=== PATIENT | male | born 1960 | race Caucasian/White ===

== ENCOUNTER 2018-07-11 12:33 | Inpatient (IN) | payer OTHER ==
[2018-07-11 13:10] VITALS: BMI 23.3
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
[2018-07-11] MEDS ORDERED: guaiFENesin/D-METHORPHAN HB 10 ML UNIT-DOSE CUPS PO PRN (15:50)
[2018-07-11] MEDS ORDERED: LOPERAMIDE HCL 2 MG CAPSULE PO PRN (15:50)
[2018-07-11] MEDS ORDERED: P-EPHED 60MG/TRIPROLIDI 2.5MG TABLET PO PRN (15:50)
[2018-07-11] MEDS ORDERED: ACETAMINOPHEN 325 MG TABLET (FP) PO PRN (15:50)
[2018-07-11] MEDS ORDERED: MAG HYDROX/AL HYDROX/SIMETH 30 ML UNIT-DOSE CUP PO PRN (15:50)
[2018-07-11] MEDS ORDERED: MAGNESIUM HYDROX 2400MG/30ML ORAL SUSPENSION 30 ML CUP PO PRN (15:50)
[2018-07-11] MEDS ORDERED: MAGNESIUM CITRATE 300 ML BOTTLE PO PRN (15:50)
[2018-07-11] MEDS ORDERED: MENTHOL/PHENOL 1 EACH UD MM PRN (15:50)
[2018-07-11] MEDS ORDERED: ALBUTEROL SO4 8 GM HFA INHALER IH PRN (15:52)
[2018-07-11] MEDS ORDERED: METHADONE HCL 10 MG TABLET (FOR DETOX USE ONLY) PO ONE ×2 (17:00→23:00)
[2018-07-11] MEDS: chlordiazePOXIDE HCL 25 MG CAPSULE PO PRN (20:15)
[2018-07-11] MEDS ORDERED: MELATONIN 5 MG TABLETS PO PRN (22:00)
[2018-07-11] MEDS: chlordiazePOXIDE HCL 25 MG CAPSULE PO SCH (22:25)
[2018-07-11] MEDS: THIAMINE HCL 100 MG TABLET (FP) PO SCH (22:25)
[2018-07-12] MEDS: hydrOXYzine PAMOATE 50 MG CAPSULE (FP) PO PRN ×2 (03:49→14:52)
[2018-07-12] MEDS: chlordiazePOXIDE HCL 25 MG CAPSULE PO PRN (03:50)
[2018-07-12] MEDS: chlordiazePOXIDE HCL 25 MG CAPSULE PO SCH ×4 (05:34→22:13)
[2018-07-12] MEDS ORDERED: METHADONE HCL 10 MG TABLET (FOR DETOX USE ONLY) PO SCH (10:00)
[2018-07-12] MEDS: PRENATAL VITAMINS W/ FOLIC ACID TABLET (FP) PO SCH (10:23)
[2018-07-12] MEDS: NICOTINE 21 MG/24 HOURS TOPICAL PATCH TD SCH (10:26)
[2018-07-12] MEDS: NICOTINE POLACRILEX 2 MG GUM BC PRN (10:27)
[2018-07-12 11:00] LABS: ALK PHOS 246 U/L (45-117); ANION GAP 7 MMOL/L (8-16); BILIRUBIN,TOTAL 0.8 mg/dL (0.2-1); BLOOD UREA NITROGEN 11 mg/dL (7-18); CHLORIDE 100 mmol/L (98-107); CO2 30 mmol/L (21-32); CREATININE 0.6 mg/dL (0.55-1.3); GLUCOSE,RANDOM 94 mg/dL (74-106); POTASSIUM 3.8 mmol/L (3.5-5.1); SGOT/AST 83 U/L (15-37); SGPT/ALT 95 U/L (13-61); SODIUM 138 mmol/L (136-145); TOT PROT 7.4 g/dl (6.4-8.2)
[2018-07-12 11:11] LABS: HEMATOCRIT 41.6 % (35.4-49); HEMOGLOBIN 14.4 GM/dL (11.7-16.9); MCH 33.2 pg (25.7-33.7); MCHC 34.7 g/dl (32.0-35.9); MEAN CELL VOLUME 95.6 fl (80-96); MEAN PLT VOLUME 9.7 fl (7.5-11.1); PLATELET COUNT 181 K/MM3 (134-434); RBC 4.35 M/mm3 (4.00-5.60); RDW 13.9 % (11.9-15.9); WHITE BLOOD COUNT 4.9 K/mm3 (4.0-10.0)
[2018-07-12] MEDS ORDERED: FLU VACCINE QUAD 60 MCG/0.5 ML (MDV 18-19) IM ONE (12:00)
--- NOTE | 2018-07-12 14:10 | PN ---
S CIWA - CIWA Score Nausea/Vomitin-Mild Nausea/No Vomiting Muscle Tremors: 3 Anxiety: 3 Agitation: 2 Paroxysmal Sweats: 1-Minimal Palms Moist Orientation: 1-Uncertain about Date Tacttile Disturbances: 0-None Auditory Disturbances: 0-None Visual Disturbances: 0-None Headache: 2-Mild CIWA-Ar Total Score: 13 BHS COWS - Scale Resting Pulse: 1= [place] 81-100 Sweatin= Chills/Flushing Restless Observation: 0= Sits Still Pupil Size: 0= Normal to Room Light Bone or Joint Aches: 1= Mild Discomfort Runny Nose/ Eye Tearin= Nasal Congestion GI Upset > 30mins: 2= Nausea/Diarrhea Tremor Observation of Outstretched Hands: 2= Slight Tremor Visible Yawning Observation: 2= >3x During Session Anxiety or Irritability: 1=Feels Anxious/Irritable Goose Flesh Skin: 0=Smooth Skin COWS Score: 11 S Progress Note (SOAP) Subjective: body aches muscle cramping joints pain tremor sweat trouble sleep at night Objective: 07/12/18 14:12 Vital Signs Temperature 97.7 F 07/12/18 09:10 Pulse Rate 79 07/12/18 12:00 Respiratory Rate 20 07/12/18 12:00 Blood Pressure 167/79 07/12/18 09:10 O2 Sat by Pulse Oximetry (%) Laboratory Last Values WBC 4.9 K/mm3 (4.0-10.0) 07/12/18 07:00 RBC 4.35 M/mm3 (4.00-5.60) 07/12/18 07:00 Hgb 14.4 GM/dL (11.7-16.9) 07/12/18 07:00 Hct 41.6 % (35.4-49) 07/12/18 07:00 MCV 95.6 fl (80-96) 07/12/18 07:00 MCH 33.2 pg (25.7-33.7) D 07/12/18 07:00 MCHC 34.7 g/dl (32.0-35.9) 07/12/18 07:00 RDW 13.9 % (11.9-15.9) 07/12/18 07:00 Plt Count 181 K/MM3 (134-434) 07/12/18 07:00 MPV 9.7 fl (7.5-11.1) 07/12/18 07:00 Sodium 138 mmol/L (136-145) 07/12/18 07:00 Potassium 3.8 mmol/L (3.5-5.1) 07/12/18 07:00 Chloride 100 mmol/L (98-107) 07/12/18 07:00 Carbon Dioxide 30 mmol/L (21-32) 07/12/18 07:00 Anion Gap 7 MMOL/L (8-16) L 07/12/18 07:00 BUN 11 mg/dL (7-18) 07/12/18 07:00 Creatinine 0.6 mg/dL (0.55-1.3) 07/12/18 07:00 Creat Clearance w eGFR > 60 (>60) 07/12/18 07:00 Random Glucose 94 mg/dL (74-106) 07/12/18 07:00 Calcium 9.0 mg/dL (8.5-10.1) 07/12/18 07:00 Total Bilirubin 0.8 mg/dL (0.2-1) 07/12/18 07:00 AST 83 U/L (15-37) H 07/12/18 07:00 ALT 95 U/L (13-61) H 07/12/18 07:00 Alkaline Phosphatase 246 U/L (45-117) H 07/12/18 07:00 Total Protein 7.4 g/dl (6.4-8.2) 07/12/18 07:00 Albumin 4.0 g/dl (3.4-5.0) 07/12/18 07:00 RPR Titer Nonreactive (NONREACTIVE) 07/12/18 07:00 HIV 1&2 Antibody Screen Negative 07/12/18 07:00 HIV P24 Antigen Negative 07/12/18 07:00 hypertension begin HCTZ begin amlodipine lab noted 07/12/18 14:15 Assessment: 07/12/18 14:16 withdrawal sx hypertension Plan: continue detox HCTZ Amlodipine
[2018-07-12] MEDS: HYDROCHLOROTHIAZIDE 25 MG TABLET (FP) PO SCH (14:53)
[2018-07-12 15:31] LABS: URINE APPEARANCE CLEAR; URINE BILIRUBIN NEGATIVE (<2.0 mg/dL); URINE COLOR LTYELLOW; URINE GLUCOSE (UA) 1+ (NEGATIVE); URINE KETONE NEGATIVE (NEGATIVE); URINE LEUK ESTERASE NEGATIVE (NEGATIVE); URINE NITRITE NEGATIVE (NEGATIVE); URINE PROTEIN NEGATIVE (NEGATIVE); URINE UROBILINOGEN NEGATIVE mg/dL (0.2-1.0)
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
[2018-07-12] MEDS: amLODIPine BESYLATE 5 MG TABLET (FP) PO SCH (22:12)
[2018-07-12] MEDS: QUEtiapine FUMARATE 50 MG TABLET PO SCH (22:13)
[2018-07-12] MEDS: THIAMINE HCL 100 MG TABLET (FP) PO SCH (22:13)
[2018-07-13] MEDS: IBUPROFEN 400 MG TABLET (FP) PO PRN ×3 (03:15→22:25)
[2018-07-13] MEDS: chlordiazePOXIDE HCL 25 MG CAPSULE PO SCH ×3 (05:32→17:28)
[2018-07-13] MEDS: NICOTINE 21 MG/24 HOURS TOPICAL PATCH TD SCH (09:07)
[2018-07-13] MEDS: amLODIPine BESYLATE 5 MG TABLET (FP) PO SCH ×2 (09:07→22:21)
[2018-07-13] MEDS: HYDROCHLOROTHIAZIDE 25 MG TABLET (FP) PO SCH (09:07)
[2018-07-13] MEDS: PRENATAL VITAMINS W/ FOLIC ACID TABLET (FP) PO SCH (09:07)
[2018-07-13] MEDS: METHADONE HCL 5 MG TABLET (FOR DETOX USE ONLY) PO SCH (09:07)
--- NOTE | 2018-07-13 10:21 | EKG ---
Test Reason : Blood Pressure : / mmHG Vent. Rate : 087 BPM Atrial Rate : 087 BPM P-R Int : 166 ms QRS Dur : 090 ms QT Int : 386 ms P-R-T Axes : 066 081 066 degrees QTc Int : 464 ms NORMAL SINUS RHYTHM POSSIBLE LEFT ATRIAL ENLARGEMENT BORDERLINE ECG NO PREVIOUS ECGS AVAILABLE Confirmed by OSBALDO NAYAK MD ([id number]) on 07/13/2018 10:20:48 AM Referred By: Confirmed By:OSBALDO NAYAK MD
--- NOTE | 2018-07-13 10:55 | PN ---
S CIWA - CIWA Score Nausea/Vomitin Muscle Tremors: 2 Anxiety: 2 Agitation: 2 Paroxysmal Sweats: 2 Orientation: 0-Oriented Tacttile Disturbances: 0-None Auditory Disturbances: 0-None Visual Disturbances: 0-None Headache: 2-Mild CIWA-Ar Total Score: 12 BHS COWS - Scale Resting Pulse: 0= [place] 80 or Below Sweatin=Flushed/Facial Moisture Restless Observation: 1= Difficult to Sit Still Pupil Size: 1= Pupils >than Normal Bone or Joint Aches: 2= Severe Diffuse Aches Runny Nose/ Eye Tearin= None GI Upset > 30mins: 2= Nausea/Diarrhea Tremor Observation of Outstretched Hands: 2= Slight Tremor Visible Yawning Observation: 0= None Anxiety or Irritability: 2=Irritable/Anxious Goose Flesh Skin: 0=Smooth Skin COWS Score: 12 S Progress Note (SOAP) Subjective: PATIENT C/O NAUSEA, DIARRHEA, SWEATS, CHILLS AND RESTLESSNESS. Objective: Vital Signs Temperature 97 F L 07/13/18 09:02 Pulse Rate 79 07/13/18 09:02 Respiratory Rate 20 07/13/18 09:02 Blood Pressure 160/95 07/13/18 09:02 O2 Sat by Pulse Oximetry (%) Laboratory Tests 07/12/18 07/12/18 07/12/18 07:00 07:00 07:00 WBC 4.9 RBC 4.35 Hgb 14.4 Hct 41.6 MCV 95.6 MCH 33.2 D MCHC 34.7 RDW 13.9 Plt Count 181 MPV 9.7 Sodium 138 Potassium 3.8 Chloride 100 Carbon Dioxide 30 Anion Gap 7 L BUN 11 Creatinine 0.6 Creat Clearance w eGFR > 60 Random Glucose 94 Calcium 9.0 Total Bilirubin 0.8 AST 83 H ALT 95 H Alkaline Phosphatase 246 H Total Protein 7.4 Albumin 4.0 Urine Color Urine Appearance Urine pH Ur Specific [place] Urine Protein Urine Glucose (UA) Urine Ketones Urine Blood Urine Nitrite Urine Bilirubin Urine Urobilinogen Ur Leukocyte Esterase RPR Titer Nonreactive HIV 1&2 Antibody Screen HIV P24 Antigen 07/12/18 07/12/18 07:00 13:00 WBC RBC Hgb Hct MCV MCH MCHC RDW Plt Count MPV Sodium Potassium Chloride Carbon Dioxide Anion Gap BUN Creatinine Creat Clearance w eGFR Random Glucose Calcium Total Bilirubin AST ALT Alkaline Phosphatase Total Protein Albumin Urine Color Ltyellow Urine Appearance Clear Urine pH 8.0 Ur Specific [place] 1.010 Urine Protein Negative Urine Glucose (UA) 1+ H Urine Ketones Negative Urine Blood Negative Urine Nitrite Negative Urine Bilirubin Negative Urine Urobilinogen Negative Ur Leukocyte Esterase Negative RPR Titer HIV 1&2 Antibody Screen Negative HIV P24 Antigen Negative PE: ALERT AND ORIENTED X 3 SKIN WARM AND MOIST CAR S1S2 RESP CTA BL EXT MILD TREMORS, NO EDEMA +ANXIETY, RESTLESSNESS Assessment: 07/13/18 10:55 WITHDRAWAL SX Plan: CONTINUE DETOX ENCOURAGE ORAL FLUIDS CONTINUE TO MONITOR CLINICALLY
[2018-07-13] MEDS: THIAMINE HCL 100 MG TABLET (FP) PO SCH (22:21)
[2018-07-13] MEDS: QUEtiapine FUMARATE 50 MG TABLET PO SCH (22:21)
[2018-07-13] MEDS: chlordiazePOXIDE 5 MG CAPSULE PO SCH (22:22)
[2018-07-14] MEDS: chlordiazePOXIDE 5 MG CAPSULE PO SCH ×3 (05:30→17:43)
[2018-07-14] MEDS: METHADONE HCL 5 MG TABLET (FOR DETOX USE ONLY) PO SCH (10:02)
[2018-07-14] MEDS: PRENATAL VITAMINS W/ FOLIC ACID TABLET (FP) PO SCH (10:02)
[2018-07-14] MEDS: HYDROCHLOROTHIAZIDE 25 MG TABLET (FP) PO SCH (10:02)
[2018-07-14] MEDS: amLODIPine BESYLATE 5 MG TABLET (FP) PO SCH ×2 (10:02→22:19)
[2018-07-14] MEDS: NICOTINE 21 MG/24 HOURS TOPICAL PATCH TD SCH (10:03)
[2018-07-14] MEDS: NICOTINE POLACRILEX 2 MG GUM BC PRN (10:06)
--- NOTE | 2018-07-14 13:04 | PN ---
[facility] Progress Note Note: PATIENT CONTINUES WITH DETOX REGIMEN. C/O DIARRHEA AND SHAKES. Vital Signs Temperature 96.1 F L 07/14/18 09:02 Pulse Rate 120 H 07/14/18 09:02 Respiratory Rate 18 07/14/18 09:02 Blood Pressure 130/88 07/14/18 09:02 O2 Sat by Pulse Oximetry (%) Laboratory Tests 07/12/18 07/12/18 07/12/18 07:00 07:00 07:00 WBC 4.9 RBC 4.35 Hgb 14.4 Hct 41.6 MCV 95.6 MCH 33.2 D MCHC 34.7 RDW 13.9 Plt Count 181 MPV 9.7 Sodium 138 Potassium 3.8 Chloride 100 Carbon Dioxide 30 Anion Gap 7 L BUN 11 Creatinine 0.6 Creat Clearance w eGFR > 60 Random Glucose 94 Calcium 9.0 Total Bilirubin 0.8 AST 83 H ALT 95 H Alkaline Phosphatase 246 H Total Protein 7.4 Albumin 4.0 Urine Color Urine Appearance Urine pH Ur Specific [place] Urine Protein Urine Glucose (UA) Urine Ketones Urine Blood Urine Nitrite Urine Bilirubin Urine Urobilinogen Ur Leukocyte Esterase RPR Titer Nonreactive HIV 1&2 Antibody Screen HIV P24 Antigen 07/12/18 07/12/18 07:00 13:00 WBC RBC Hgb Hct MCV MCH MCHC RDW Plt Count MPV Sodium Potassium Chloride Carbon Dioxide Anion Gap BUN Creatinine Creat Clearance w eGFR Random Glucose Calcium Total Bilirubin AST ALT Alkaline Phosphatase Total Protein Albumin Urine Color Ltyellow Urine Appearance Clear Urine pH 8.0 Ur Specific [place] 1.010 Urine Protein Negative Urine Glucose (UA) 1+ H Urine Ketones Negative Urine Blood Negative Urine Nitrite Negative Urine Bilirubin Negative Urine Urobilinogen Negative Ur Leukocyte Esterase Negative RPR Titer HIV 1&2 Antibody Screen Negative HIV P24 Antigen Negative PE: ALERT AND ORIENTED X 3 SKIN WARM AND DRY EXT FULL ROM, NO TREMORS VISIBLE AMB AD JP A/P WITHDRAWAL SX CONTINUE DETOX ENCOURAGE ORAL FLUIDS MONITOR
[2018-07-14] MEDS: chlordiazePOXIDE HCL 10 MG CAPSULE PO SCH (22:18)
[2018-07-14] MEDS: QUEtiapine FUMARATE 50 MG TABLET PO SCH (22:18)
[2018-07-14] MEDS: THIAMINE HCL 100 MG TABLET (FP) PO SCH (22:18)
[2018-07-14] MEDS: IBUPROFEN 400 MG TABLET (FP) PO PRN (22:20)
[2018-07-15] MEDS: chlordiazePOXIDE HCL 10 MG CAPSULE PO SCH ×2 (05:42→10:38)
[2018-07-15] MEDS ORDERED: METHADONE HCL 10 MG TABLET (FOR DETOX USE ONLY) PO SCH (10:00)
--- NOTE | 2018-07-15 10:08 | PN ---
[facility] Progress Note Note: PATIENT CONTINUES WITH DETOX REGIMEN. STATES HAVING INTERMITTENT EPISODES OF DIARRHEA AND NIGHT SWEATS. OTHERWISE, PATIENT REPORTS " I FEEL OKAY". Vital Signs Temperature 96.7 F L 07/15/18 06:33 Pulse Rate 63 07/15/18 06:33 Respiratory Rate 18 07/15/18 06:33 Blood Pressure 132/76 07/15/18 06:33 O2 Sat by Pulse Oximetry (%) Laboratory Tests 07/12/18 07/12/18 07/12/18 07:00 07:00 07:00 WBC 4.9 RBC 4.35 Hgb 14.4 Hct 41.6 MCV 95.6 MCH 33.2 D MCHC 34.7 RDW 13.9 Plt Count 181 MPV 9.7 Sodium 138 Potassium 3.8 Chloride 100 Carbon Dioxide 30 Anion Gap 7 L BUN 11 Creatinine 0.6 Creat Clearance w eGFR > 60 Random Glucose 94 Calcium 9.0 Total Bilirubin 0.8 AST 83 H ALT 95 H Alkaline Phosphatase 246 H Total Protein 7.4 Albumin 4.0 Urine Color Urine Appearance Urine pH Ur Specific [place] Urine Protein Urine Glucose (UA) Urine Ketones Urine Blood Urine Nitrite Urine Bilirubin Urine Urobilinogen Ur Leukocyte Esterase RPR Titer Nonreactive HIV 1&2 Antibody Screen HIV P24 Antigen 07/12/18 07/12/18 07:00 13:00 WBC RBC Hgb Hct MCV MCH MCHC RDW Plt Count MPV Sodium Potassium Chloride Carbon Dioxide Anion Gap BUN Creatinine Creat Clearance w eGFR Random Glucose Calcium Total Bilirubin AST ALT Alkaline Phosphatase Total Protein Albumin Urine Color Ltyellow Urine Appearance Clear Urine pH 8.0 Ur Specific [place] 1.010 Urine Protein Negative Urine Glucose (UA) 1+ H Urine Ketones Negative Urine Blood Negative Urine Nitrite Negative Urine Bilirubin Negative Urine Urobilinogen Negative Ur Leukocyte Esterase Negative RPR Titer HIV 1&2 Antibody Screen Negative HIV P24 Antigen Negative PE: ALERT AND ORIENTED X 3 SKIN WARM AND DRY CAR S1S2 RESP CTA BL EXT FULL ROM, NO TREMORS A/P WITHDRAWAL SX CONTINUE DETOX FOR D/C IN AM CONTINUE TO MONITOR
[2018-07-15] MEDS: HYDROCHLOROTHIAZIDE 25 MG TABLET (FP) PO SCH (10:38)
[2018-07-15] MEDS: amLODIPine BESYLATE 5 MG TABLET (FP) PO SCH (10:38)
[2018-07-15] MEDS: PRENATAL VITAMINS W/ FOLIC ACID TABLET (FP) PO SCH (10:38)
[2018-07-15] MEDS: NICOTINE 21 MG/24 HOURS TOPICAL PATCH TD SCH (10:41)
[2018-07-15] MEDS: NICOTINE POLACRILEX 2 MG GUM BC PRN (10:42)
[2018-07-15 13:38] VITALS: BP 118/89; PULSE 119; TEMP 97
[2018-07-16] MEDS ORDERED: METHADONE HCL 5 MG TABLET (FOR DETOX USE ONLY) PO SCH (06:00)
== END 2018-07-15 15:58 | disposition other institution (70) | DRG 773 ==
LOC: YASAS 12:33 → Y3N 16:27
PROC: HZ2ZZZZ Detoxification Services for Substance Abuse Treatment (ICD-10-PCS; principal; 2018-07-11)
DX: F11.23 Opioid dependence with withdrawal (principal); F10.230 Alcohol dependence with withdrawal, uncomplicated; F14.20 Cocaine dependence, uncomplicated; F12.20 Cannabis dependence, uncomplicated; F17.213 Nicotine dependence, cigarettes, with withdrawal; F19.24 Other psychoactive substance dependence with psychoactive substance-induced mood disorder; F31.89 Other bipolar disorder; I10 Essential (primary) hypertension; G47.00 Insomnia, unspecified; K21.9 Gastro-esophageal reflux disease without esophagitis; M54.5 Low back pain; G89.29 Other chronic pain; Z86.69 Personal history of other diseases of the nervous system and sense organs; Z91.19 Patient's noncompliance with other medical treatment and regimen; Z91.013 Allergy to seafood; Z91.5 Personal history of self-harm
CPT/HCPCS: 36415; 80053; 81003; 85027; 86593; 87389; 93005; 93010

== ENCOUNTER 2018-07-15 15:12 | Inpatient (IN) | payer OTHER ==
[2018-07-15 16:02] VITALS: BMI 22.1
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
[2018-07-15] MEDS ORDERED: MAGNESIUM CITRATE 300 ML BOTTLE PO PRN (19:24)
[2018-07-15] MEDS ORDERED: MAG HYDROX/AL HYDROX/SIMETH 30 ML UNIT-DOSE CUP PO PRN (19:24)
[2018-07-15] MEDS ORDERED: LOPERAMIDE HCL 2 MG CAPSULE PO PRN (19:24)
[2018-07-15] MEDS ORDERED: MAGNESIUM HYDROX 2400MG/30ML ORAL SUSPENSION 30 ML CUP PO PRN (19:24)
[2018-07-15] MEDS ORDERED: MENTHOL/PHENOL 1 EACH UD MM PRN (19:24)
--- NOTE | 2018-07-15 19:24 | HP ---
[facility] Rehab Assess/Revision - Admission History Admitted to Rehab from: [facility] Date of Admission to Rehab: 07/15/18 - Vital signs Vital Signs: Vital Signs Period Temp Pulse Resp BP Sys/Rust Pulse Ox Last 24 Hr 98 F-98.1 F 95-95 18-18 120-120/85-85 - Findings Detox History & Physical reviewed: Yes Concur with findings: Yes Comments/Additional Findings: Tolerated detox protocol well Inpatient Rehab Admission - Initial Determination Are CD services needed?: Yes Free of communicable disease: Yes Not in need of hospitalization: Yes - Rehab Admission Criteria Previous failed treatment: Yes Poor recovery environment: Yes Comorbidities: No Lacks judgement: Yes Patient is meeting Inpatient Rehab admission criteria:: Yes
[2018-07-15] MEDS ORDERED: ALBUTEROL SO4 0.083% IH SOL 2.5 MG/3 ML VIAL.NEB. NEB PRN (19:27)
[2018-07-15] MEDS: QUEtiapine FUMARATE 50 MG TABLET PO SCH (21:13)
[2018-07-15] MEDS: THIAMINE HCL 100 MG TABLET (FP) PO SCH (21:14)
[2018-07-15] MEDS: MELATONIN 5 MG TABLETS PO PRN (21:14)
[2018-07-15] MEDS: amLODIPine BESYLATE 5 MG TABLET (FP) PO SCH (21:14)
[2018-07-16] MEDS: NICOTINE 14 MG/24 HOURS TOPICAL PATCH TD SCH (09:46)
[2018-07-16] MEDS: amLODIPine BESYLATE 5 MG TABLET (FP) PO SCH ×2 (09:47→21:11)
[2018-07-16] MEDS: HYDROCHLOROTHIAZIDE 25 MG TABLET (FP) PO SCH (09:47)
[2018-07-16] MEDS: PRENATAL VITAMINS W/ FOLIC ACID TABLET (FP) PO SCH (09:47)
[2018-07-16] MEDS: hydrOXYzine PAMOATE 50 MG CAPSULE (FP) PO PRN (14:33)
[2018-07-16] MEDS: THIAMINE HCL 100 MG TABLET (FP) PO SCH (21:11)
[2018-07-16] MEDS: QUEtiapine FUMARATE 50 MG TABLET PO SCH (21:11)
[2018-07-16] MEDS: MELATONIN 5 MG TABLETS PO PRN (21:12)
[2018-07-17] MEDS: ACETAMINOPHEN 325 MG TABLET (FP) PO PRN (06:18)
[2018-07-17] MEDS: hydrOXYzine PAMOATE 50 MG CAPSULE (FP) PO PRN ×2 (06:18→21:11)
[2018-07-17] MEDS: PRENATAL VITAMINS W/ FOLIC ACID TABLET (FP) PO SCH (09:54)
[2018-07-17] MEDS: amLODIPine BESYLATE 5 MG TABLET (FP) PO SCH ×2 (09:54→21:10)
[2018-07-17] MEDS: NICOTINE 14 MG/24 HOURS TOPICAL PATCH TD SCH (09:54)
[2018-07-17] MEDS: HYDROCHLOROTHIAZIDE 25 MG TABLET (FP) PO SCH (09:54)
[2018-07-17] MEDS: IBUPROFEN 400 MG TABLET (FP) PO PRN ×2 (09:57→16:50)
[2018-07-17] MEDS: QUEtiapine FUMARATE 50 MG TABLET PO SCH (21:10)
[2018-07-17] MEDS: THIAMINE HCL 100 MG TABLET (FP) PO SCH (21:10)
[2018-07-18] MEDS: hydrOXYzine PAMOATE 50 MG CAPSULE (FP) PO PRN ×3 (06:00→21:10)
[2018-07-18] MEDS: IBUPROFEN 400 MG TABLET (FP) PO PRN (06:00)
[2018-07-18] MEDS: HYDROCHLOROTHIAZIDE 25 MG TABLET (FP) PO SCH (10:08)
[2018-07-18] MEDS: PRENATAL VITAMINS W/ FOLIC ACID TABLET (FP) PO SCH (10:08)
[2018-07-18] MEDS: amLODIPine BESYLATE 5 MG TABLET (FP) PO SCH ×2 (10:08→21:09)
[2018-07-18] MEDS: NICOTINE 14 MG/24 HOURS TOPICAL PATCH TD SCH (10:08)
[2018-07-18] MEDS: NICOTINE POLACRILEX 2 MG GUM BUC PRN (10:10)
--- NOTE | 2018-07-18 11:11 | PN ---
[facility] Progress Note Note: PT C/O LEFT TESTICULAR PULSATING PAIN DESCRIBED SCALE 9/10(SAYS "SEEING STARS"). REPORTS IT IS WORSE WHEN THE AREA TOUCHES HIS THIGH AND DIFFICULT TO WALK. REPORTS THERE IS A REDNESS AND LUMP TO THE SAID AREA ON LEFT TESTICLE. PT ALSO C/O BURNING SENSATION ON URINATION AT TIP OF HIS PENIS.URINATION. PT COMPLETED DETOX [facility] ON 07/15/18 AND REFERRED TO REHAB SAME DAY. PT DENIES FEVER, NAUSEA, OR VOMITING. DENIES TRUAMA TO AREA. REPORTS PAIN HAS BEEN ON FOR 2-3 DAYS AND TOOK PAIN MEDICINE WITH LITTLE OR NO RELIEF. PT IS REQUESTING EVALUATION AT THE ER. Vital Signs 07/18/18 07/18/18 07/18/18 03:30 06:46 10:00 Temperature 98.1 F Pulse Rate 106 H 105 H Respiratory 18 18 20 Rate Blood Pressure 126/91 108/82 GROIN; MODERATE TO SEVERE PAIN TO LEFT TESTICLE(PT PALPATED SELF AND NOT TOLERATED HIS TOUCH), VERY SLIGHT REDNESS. PT EXHIBITED NO PAIN TO RIGHT SIDE. IMPRESSION;R/O TESTICULAR INFECTION PLAN:TRANSFER TO [facility]IA [facility]BULANCE FOR EVALUATION AND TREATMENT IF NEEDED. SPOKE WITH FAWAD(NURSE PEARL GLUE OPERATOR) AT [facility] WHO OK'D TO BRING THE PATIENT. PT MAY RETURN TO [facility] TO CONTINUE REHAB WHEN CLEARED.
[2018-07-18] MEDS: QUEtiapine FUMARATE 50 MG TABLET PO SCH (21:08)
[2018-07-18] MEDS: THIAMINE HCL 100 MG TABLET (FP) PO SCH (21:09)
[2018-07-19] MEDS: NAPROXEN 500 MG TABLET (FP) PO PRN ×2 (04:40→21:06)
[2018-07-19] MEDS: amLODIPine BESYLATE 5 MG TABLET (FP) PO SCH ×2 (09:52→21:06)
[2018-07-19] MEDS: PRENATAL VITAMINS W/ FOLIC ACID TABLET (FP) PO SCH (09:52)
[2018-07-19] MEDS: hydrOXYzine PAMOATE 50 MG CAPSULE (FP) PO PRN ×2 (09:53→21:07)
[2018-07-19] MEDS: NICOTINE 14 MG/24 HOURS TOPICAL PATCH TD SCH (09:53)
[2018-07-19] MEDS: NICOTINE POLACRILEX 2 MG GUM BUC PRN (09:53)
[2018-07-19] MEDS: HYDROCHLOROTHIAZIDE 25 MG TABLET (FP) PO SCH (09:56)
[2018-07-19 11:01] LABS: ALBUMIN 4.2 g/dl (3.4-5.0); ALK PHOS 165 U/L (45-117); ANION GAP 7 MMOL/L (8-16); BILIRUBIN,TOTAL 0.2 mg/dL (0.2-1); BLOOD UREA NITROGEN 25 mg/dL (7-18); CALCIUM 9.1 mg/dL (8.5-10.1); CHLORIDE 105 mmol/L (98-107); CO2 27 mmol/L (21-32); CREATININE 0.7 mg/dL (0.55-1.3); GLUCOSE,RANDOM 168 mg/dL (74-106); POTASSIUM 4.1 mmol/L (3.5-5.1); SGOT/AST 22 U/L (15-37); SGPT/ALT 30 U/L (13-61); SODIUM 138 mmol/L (136-145); TOT PROT 7.4 g/dl (6.4-8.2)
--- NOTE | 2018-07-19 15:47 | PN ---
[facility] Progress Note Note: PT RETURNED FROM [facility] LAST EVENING AT 7;00 PM PER DOCUMENTATION/ NURSE. PT'S DOCUMENT HAS INSTRUCTION FOR UROLOGY EVALUATION ON 07/20/18 WITH COLBY OLSON AT [address], [address] [place] PH: . PT ALSO HAS REFERRAL TO TAYLA ELIZABETH DO AT [address], [address], [place], [place] [address] PH:[phone] DISCUSSED WITH NURSE CARINE ON [address] WHO WILL FACILITATE PT'S FOLLOW UP FOR REFERRAL ON 07/20/18. [facility] ED DISCHARGE PLAN:*DC/Admit/Observation/Transfer Diagnosis at time of Disposition: Left testicular pain - Discharge Dispostion Disposition: TRANSFER ACUTE CARE/OTHER HOSP Condition at time of disposition: Stable Decision to Admit order: No - Prescriptions Prescriptions: Naproxen [Naprosyn -] 500 mg PO BID PRN #20 tablet PRN Reason: Pain Level 6-10 - Referrals Referrals: Tayla Camacho DO [Staff Physician] - Colby Lo MD [Staff Physician] - - Patient Instructions Additional Instructions: -You were seen here for left testicular pain and found to have a left testicular mass. This is concerning for malignancy/cancer and you will need to follow up with a Urologist. We spoke to Urology and they recommended you to come to their office this Wednesday (07/20/18) for further evaluation. They will be expecting you.The information for the Urology will be in the Package. The name of the Urologist is Dr. Cerda. -You were also found to have a possible infection of the gallbladder area and you will need to be followed up by a stomach Doctor within 1 week. You will have a referral to a stomach doctor in your discharge packet. The name of the Doctor is Dr. Camacho -If you start to experience worsening abdominal pain, fevers, chills, severe vomiting, new, worsening, or concerning symptoms, please return to the emergency department immediately. -Please take Naproxen 500mg twice a day for pain up to 10 days as needed - Post Discharge Activity
[2018-07-19] MEDS: QUEtiapine FUMARATE 50 MG TABLET PO SCH (21:06)
[2018-07-19] MEDS: THIAMINE HCL 100 MG TABLET (FP) PO SCH (21:06)
[2018-07-19] MEDS: MELATONIN 5 MG TABLETS PO PRN (21:09)
[2018-07-20] MEDS: hydrOXYzine PAMOATE 50 MG CAPSULE (FP) PO PRN ×2 (06:34→10:24)
[2018-07-20] MEDS: ACETAMINOPHEN 325 MG TABLET (FP) PO PRN ×2 (06:34→17:55)
[2018-07-20] MEDS: NICOTINE POLACRILEX 2 MG GUM BUC PRN (10:24)
[2018-07-20] MEDS: NAPROXEN 500 MG TABLET (FP) PO PRN ×2 (10:24→21:14)
[2018-07-20] MEDS: HYDROCHLOROTHIAZIDE 25 MG TABLET (FP) PO SCH (10:24)
[2018-07-20] MEDS: PRENATAL VITAMINS W/ FOLIC ACID TABLET (FP) PO SCH (10:24)
[2018-07-20] MEDS: NICOTINE 14 MG/24 HOURS TOPICAL PATCH TD SCH (10:24)
[2018-07-20] MEDS: amLODIPine BESYLATE 5 MG TABLET (FP) PO SCH ×2 (10:24→21:12)
[2018-07-20] MEDS: THIAMINE HCL 100 MG TABLET (FP) PO SCH (21:12)
[2018-07-20] MEDS: QUEtiapine FUMARATE 50 MG TABLET PO SCH (21:12)
[2018-07-20] MEDS: MELATONIN 5 MG TABLETS PO PRN (21:13)
[2018-07-21] MEDS: ACETAMINOPHEN 325 MG TABLET (FP) PO PRN (06:05)
[2018-07-21] MEDS: hydrOXYzine PAMOATE 50 MG CAPSULE (FP) PO PRN ×3 (06:05→21:11)
[2018-07-21] MEDS: NAPROXEN 500 MG TABLET (FP) PO PRN (10:06)
[2018-07-21] MEDS: PRENATAL VITAMINS W/ FOLIC ACID TABLET (FP) PO SCH (10:06)
[2018-07-21] MEDS: NICOTINE 14 MG/24 HOURS TOPICAL PATCH TD SCH (10:06)
[2018-07-21] MEDS: HYDROCHLOROTHIAZIDE 25 MG TABLET (FP) PO SCH (10:06)
[2018-07-21] MEDS: amLODIPine BESYLATE 5 MG TABLET (FP) PO SCH ×2 (10:06→21:11)
--- NOTE | 2018-07-21 11:29 | PN ---
Psychiatric Progress Note Vital Signs: Vital Signs Period Temp Pulse Resp BP Sys/Rust Pulse Ox Last 24 Hr 97.8 F 87 18-18 145/88 Date of Session: 07/21/18 Chief Complaint:: "Discharge" HPI: Patient was admitted to for alcohol, cocaine, marijuana, and opiate dependence. ROS: HTN,GERD,BA,H/O L hip injury(tour of duty in [place]), pain in left testicle ( will see urologist on 07/22/18) Current Medications: Active Medications Generic Name Dose Route Start Last Admin Trade Name Freq PRN Reason Stop Dose Admin Acetaminophen 650 mg 07/15/18 19:24 07/21/18 06:05 Tylenol - PO 650 mg Q4H PRN Administration FEVER Al Hydroxide/Mg Hydroxide 30 ml 07/15/18 19:24 Mylanta Oral Suspension - PO Q6H PRN DYSPEPSIA Albuterol Sulfate 1 amp 07/15/18 19:27 Ventolin 0.083% Nebulizer Soln - NEB Q4H PRN SHORT OF BREATH/WHEEZING Amlodipine Besylate 5 mg 07/15/18 22:00 07/21/18 10:06 Norvasc - PO 5 mg BID MIRNA Administration Eucalyptus/Menthol/Phenol/Sorbitol 1 each 07/15/18 19:24 Cepastat Lozenge - MM Q4H PRN SORE THROAT Hydrochlorothiazide 25 mg 07/16/18 10:00 07/21/18 10:06 Hctz - PO 25 mg DAILY MIRNA Administration Hydroxyzine Pamoate 50 mg 07/15/18 19:24 07/21/18 10:06 Vistaril - PO 50 mg Q4H PRN Administration AGITATION Loperamide HCl 4 mg 07/15/18 19:24 Imodium - PO Q6H PRN DIARRHEA Magnesium Citrate 300 ml 07/15/18 19:24 Citroma - PO Q48H PRN CONSTIPATION Magnesium Hydroxide 30 ml 07/15/18 19:24 Milk Of Magnesia - PO DAILY PRN CONSTIPATION Melatonin 5 mg 07/15/18 22:00 07/20/18 21:13 Melatonin PO 5 mg HS PRN Administration INSOMNIA Naproxen 500 mg 07/18/18 22:38 07/21/18 10:06 Naprosyn - PO 500 mg Q12H PRN Administration PAIN LEVEL 6-10 Nicotine 14 mg 07/16/18 10:00 07/21/18 10:06 Nicoderm Patch - TD 14 mg DAILY MIRNA Administration Nicotine Polacrilex 2 mg 07/15/18 19:24 07/20/18 10:24 Nicorette Gum - BUC 2 mg Q2H PRN Administration NICOTINE REPLACEMENT RX Multivit/Folic Acid/Iron 1 tab 07/16/18 10:00 07/21/18 10:06 Vitamins (Sjr) - PO 1 tab DAILY MIRNA Administration Quetiapine Fumarate 150 mg 07/15/18 22:00 07/20/18 21:12 Seroquel - PO 150 mg HS MIRNA Administration Thiamine HCl 100 mg 07/15/18 22:00 07/20/18 21:12 Vitamin B1 - PO 100 mg HS MIRNA Administration Medication(s) Change(s): No. Current Side Effect: No Lab tests ordered: No Lab tests reviewed: Yes Provider note:: Patient will complete the inpatient rehabilitation program on . Despite his short stay he reports learning the importance of changing his behavior and the need for more struture in his life. Patient will be discharged tomorrow directly to Dr. Cerda's office (Urologist). Patient also has an appointment set up for 07/27/2018 at [facility] and outpatient treatment facility on 07/27/18. A prescription of Seroquel 150mg HS will be electronically sent to patient's pharmacy at [facility] at [address] [place] [address]. Patient is stable for discharge on 07/22/18. Total face to face time:: 35 Mental Status Exam - Mental Status Exam Alert and Oriented to: Time, Place, Person Cognitive Function: Good Patient Appearance: Well Groomed Mood: Hopeful, Euthymic Affect: Appropriate Patient Behavior: Appropriate, Cooperative Speech Pattern: Clear, Appropriate Voice Loudness: Normal Thought Process: Intact, Goal Oriented Thought Disorder: Not Present Hallucinations: Denies Suicidal Ideation: Denies Homicidal Ideation: Denies Insight/Judgement: Good Sleep: Well Appetite: Good Muscle strength/Tone: Normal Gait/Station: Normal Psychiatric Treatment Plan - Problem List (1) Alcohol dependence Current Visit: Yes Comment: . (2) Cocaine dependence Current Visit: Yes Qualifiers: Substance use status: uncomplicated Qualified Code(s): F14.20 - Cocaine dependence, uncomplicated Comment: . (3) Marijuana dependence Current Visit: Yes Comment: . (4) Methadone maintenance therapy patient Current Visit: Yes (5) Opioid dependence Current Visit: Yes (6) Opioid dependence on agonist therapy Current Visit: Yes Comment: .
[2018-07-21] MEDS: MELATONIN 5 MG TABLETS PO PRN (21:11)
[2018-07-21] MEDS: THIAMINE HCL 100 MG TABLET (FP) PO SCH (21:11)
[2018-07-21] MEDS: QUEtiapine FUMARATE 50 MG TABLET PO SCH (21:11)
[2018-07-22] MEDS: ACETAMINOPHEN 325 MG TABLET (FP) PO PRN (06:07)
[2018-07-22] MEDS: hydrOXYzine PAMOATE 50 MG CAPSULE (FP) PO PRN ×3 (06:07→21:12)
[2018-07-22] MEDS: PRENATAL VITAMINS W/ FOLIC ACID TABLET (FP) PO SCH (09:49)
[2018-07-22] MEDS: HYDROCHLOROTHIAZIDE 25 MG TABLET (FP) PO SCH (09:49)
[2018-07-22] MEDS: amLODIPine BESYLATE 5 MG TABLET (FP) PO SCH ×2 (09:49→21:11)
[2018-07-22] MEDS: NICOTINE 14 MG/24 HOURS TOPICAL PATCH TD SCH (09:50)
[2018-07-22] MEDS: NICOTINE POLACRILEX 2 MG GUM BUC PRN (09:50)
[2018-07-22] MEDS: NAPROXEN 500 MG TABLET (FP) PO PRN (09:52)
[2018-07-22] MEDS: THIAMINE HCL 100 MG TABLET (FP) PO SCH (21:10)
[2018-07-22] MEDS: QUEtiapine FUMARATE 50 MG TABLET PO SCH (21:11)
[2018-07-22] MEDS: MELATONIN 5 MG TABLETS PO PRN (21:11)
[2018-07-23] MEDS: ACETAMINOPHEN 325 MG TABLET (FP) PO PRN ×2 (06:11→14:14)
[2018-07-23] MEDS: hydrOXYzine PAMOATE 50 MG CAPSULE (FP) PO PRN ×3 (06:12→21:15)
[2018-07-23] MEDS: HYDROCHLOROTHIAZIDE 25 MG TABLET (FP) PO SCH (09:36)
[2018-07-23] MEDS: NICOTINE 14 MG/24 HOURS TOPICAL PATCH TD SCH (09:36)
[2018-07-23] MEDS: PRENATAL VITAMINS W/ FOLIC ACID TABLET (FP) PO SCH (09:36)
[2018-07-23] MEDS: NAPROXEN 500 MG TABLET (FP) PO PRN (09:36)
[2018-07-23] MEDS: amLODIPine BESYLATE 5 MG TABLET (FP) PO SCH ×2 (09:36→21:14)
[2018-07-23] MEDS: NICOTINE POLACRILEX 2 MG GUM BUC PRN (09:38)
[2018-07-23] MEDS: THIAMINE HCL 100 MG TABLET (FP) PO SCH (21:14)
[2018-07-23] MEDS: QUEtiapine FUMARATE 50 MG TABLET PO SCH (21:14)
[2018-07-23] MEDS: MELATONIN 5 MG TABLETS PO PRN (21:15)
[2018-07-24] MEDS: hydrOXYzine PAMOATE 50 MG CAPSULE (FP) PO PRN ×2 (06:10→21:08)
[2018-07-24] MEDS: NAPROXEN 500 MG TABLET (FP) PO PRN (06:10)
[2018-07-24] MEDS: PRENATAL VITAMINS W/ FOLIC ACID TABLET (FP) PO SCH (09:37)
[2018-07-24] MEDS: amLODIPine BESYLATE 5 MG TABLET (FP) PO SCH ×2 (09:38→21:08)
[2018-07-24] MEDS: HYDROCHLOROTHIAZIDE 25 MG TABLET (FP) PO SCH (09:38)
[2018-07-24] MEDS: NICOTINE 14 MG/24 HOURS TOPICAL PATCH TD SCH (09:38)
[2018-07-24] MEDS: NICOTINE POLACRILEX 2 MG GUM BUC PRN (09:39)
[2018-07-24] MEDS: MELATONIN 5 MG TABLETS PO PRN (21:08)
[2018-07-24] MEDS: QUEtiapine FUMARATE 50 MG TABLET PO SCH (21:08)
[2018-07-24] MEDS: THIAMINE HCL 100 MG TABLET (FP) PO SCH (21:08)
[2018-07-25] MEDS: hydrOXYzine PAMOATE 50 MG CAPSULE (FP) PO PRN ×2 (06:13→21:12)
[2018-07-25] MEDS: NAPROXEN 500 MG TABLET (FP) PO PRN (06:13)
[2018-07-25] MEDS: amLODIPine BESYLATE 5 MG TABLET (FP) PO SCH ×2 (09:44→21:11)
[2018-07-25] MEDS: HYDROCHLOROTHIAZIDE 25 MG TABLET (FP) PO SCH (09:44)
[2018-07-25] MEDS: PRENATAL VITAMINS W/ FOLIC ACID TABLET (FP) PO SCH (09:44)
[2018-07-25] MEDS: NICOTINE 14 MG/24 HOURS TOPICAL PATCH TD SCH (09:45)
[2018-07-25] MEDS: NICOTINE POLACRILEX 2 MG GUM BUC PRN (09:47)
--- NOTE | 2018-07-25 10:32 | PN ---
[facility] Progress Note Note: PATIENT REQUESTED TO HAVE FLU VACCINE HE HAS NOT BEEN VACCINATED THIS YEAR. PNA VACCINE GIVEN IN 2014. PATIENT AFEBRILE AND STABLE VITAL SIGNS. WILL ORDER FLU VACCINE X ONE. Vital Signs Temperature 98.4 F 07/25/18 07:02 Pulse Rate 102 H 07/25/18 07:02 Respiratory Rate 18 07/25/18 07:02 Blood Pressure 133/87 07/25/18 07:02 O2 Sat by Pulse Oximetry (%)
[2018-07-25] MEDS ORDERED: FLU VACCINE QUAD 60 MCG/0.5 ML (MDV 18-19) IM ONE (12:00)
[2018-07-25] MEDS: QUEtiapine FUMARATE 50 MG TABLET PO SCH (21:11)
[2018-07-25] MEDS: THIAMINE HCL 100 MG TABLET (FP) PO SCH (21:11)
[2018-07-25] MEDS: MELATONIN 5 MG TABLETS PO PRN (21:12)
[2018-07-26] MEDS: hydrOXYzine PAMOATE 50 MG CAPSULE (FP) PO PRN ×3 (06:18→21:11)
[2018-07-26] MEDS: NICOTINE POLACRILEX 2 MG GUM BUC PRN ×2 (06:18→09:35)
[2018-07-26] MEDS: NAPROXEN 500 MG TABLET (FP) PO PRN (06:18)
[2018-07-26 06:34] VITALS: TEMP 98
[2018-07-26] MEDS: HYDROCHLOROTHIAZIDE 25 MG TABLET (FP) PO SCH (09:32)
[2018-07-26] MEDS: amLODIPine BESYLATE 5 MG TABLET (FP) PO SCH ×2 (09:32→21:11)
[2018-07-26] MEDS: PRENATAL VITAMINS W/ FOLIC ACID TABLET (FP) PO SCH (09:32)
[2018-07-26] MEDS: NICOTINE 14 MG/24 HOURS TOPICAL PATCH TD SCH (09:33)
[2018-07-26] MEDS: QUEtiapine FUMARATE 50 MG TABLET PO SCH (21:11)
[2018-07-26] MEDS: MELATONIN 5 MG TABLETS PO PRN (21:12)
[2018-07-26] MEDS: THIAMINE HCL 100 MG TABLET (FP) PO SCH (21:12)
[2018-07-27] MEDS: NAPROXEN 500 MG TABLET (FP) PO PRN (06:09)
[2018-07-27] MEDS: hydrOXYzine PAMOATE 50 MG CAPSULE (FP) PO PRN ×2 (06:09→09:50)
[2018-07-27 06:59] VITALS: BP 143/98; PULSE 99
--- NOTE | 2018-07-27 09:24 | PN ---
Psychiatric Progress Note Vital Signs: Vital Signs Period Temp Pulse Resp BP Sys/Rust Pulse Ox Last 24 Hr 98.0 F 99-106 -18 117-143/73-98 Date of Session: 07/27/18 Chief Complaint:: Discharge Note HPI: Patient addressing Alcohol, cocaine and Cannabis Dependence comotrbid with Opioid Dependence on Agonist therapy, Nicotine Dependence ROS: Asthma, HTN, GERD were medically managed Current Medications: Active Medications Generic Name Dose Route Start Last Admin Trade Name Freq PRN Reason Stop Dose Admin Acetaminophen 650 mg 07/15/18 19:24 07/23/18 14:14 Tylenol - PO 650 mg Q4H PRN Administration FEVER Al Hydroxide/Mg Hydroxide 30 ml 07/15/18 19:24 Mylanta Oral Suspension - PO Q6H PRN DYSPEPSIA Albuterol Sulfate 1 amp 07/15/18 19:27 Ventolin 0.083% Nebulizer Soln - NEB Q4H PRN SHORT OF BREATH/WHEEZING Amlodipine Besylate 5 mg 07/15/18 22:00 07/26/18 21:11 Norvasc - PO 5 mg BID MIRNA Administration Eucalyptus/Menthol/Phenol/Sorbitol 1 each 07/15/18 19:24 Cepastat Lozenge - MM Q4H PRN SORE THROAT Hydrochlorothiazide 25 mg 07/16/18 10:00 07/26/18 09:32 Hctz - PO 25 mg DAILY MIRNA Administration Hydroxyzine Pamoate 50 mg 07/15/18 19:24 07/27/18 06:09 Vistaril - PO 50 mg Q4H PRN Administration AGITATION Loperamide HCl 4 mg 07/15/18 19:24 Imodium - PO Q6H PRN DIARRHEA Magnesium Citrate 300 ml 07/15/18 19:24 Citroma - PO Q48H PRN CONSTIPATION Magnesium Hydroxide 30 ml 07/15/18 19:24 Milk Of Magnesia - PO DAILY PRN CONSTIPATION Melatonin 5 mg 07/15/18 22:00 07/26/18 21:12 Melatonin PO 5 mg HS PRN Administration INSOMNIA Naproxen 500 mg 07/18/18 22:38 07/27/18 06:09 Naprosyn - PO 500 mg Q12H PRN Administration PAIN LEVEL 6-10 Nicotine 14 mg 07/16/18 10:00 07/26/18 09:33 Nicoderm Patch - TD 14 mg DAILY MIRNA Administration Nicotine Polacrilex 2 mg 07/15/18 19:24 07/26/18 09:35 Nicorette Gum - BUC 2 mg Q2H PRN Administration NICOTINE REPLACEMENT RX Multivit/Folic Acid/Iron 1 tab 07/16/18 10:00 07/26/18 09:32 Vitamins (Sjr) - PO 1 tab DAILY MIRNA Administration Quetiapine Fumarate 150 mg 07/15/18 22:00 07/26/18 21:11 Seroquel - PO 150 mg HS MIRNA Administration Thiamine HCl 100 mg 07/15/18 22:00 07/26/18 21:12 Vitamin B1 - PO 100 mg HS MIRNA Administration Current Side Effect: No Lab tests ordered: Yes Lab tests reviewed: Yes Provider note:: Patient has completed this program today. He has met his treatment goals and will continue to address his issues in outpatient treatrment at [facility] at [address] [place] [address]. Told handbook writer that from his participation in this program, he has learned. He responded well to Seroquel 150 mg po HS. Script for that medication is electronically transmitted to [facility] at [address] [place] [address]. He is stable for discharge today Total face to face time:: 35 Mental Status Exam - Mental Status Exam Alert and Oriented to: Time, Place, Person Cognitive Function: Fair Patient Appearance: Well Groomed Mood: Hopeful, Euthymic Affect: Appropriate Patient Behavior: Cooperative Speech Pattern: Clear Voice Loudness: Normal Thought Process: Intact Thought Disorder: Not Present Hallucinations: Denies Suicidal Ideation: Denies Homicidal Ideation: Denies Insight/Judgement: Fair Sleep: Well Appetite: Good Muscle strength/Tone: Normal Gait/Station: Normal Psychiatric Treatment Plan - Problem List (1) Alcohol dependence Current Visit: Yes Comment: . (2) Cocaine dependence Current Visit: Yes Qualifiers: Substance use status: uncomplicated Qualified Code(s): F14.20 - Cocaine dependence, uncomplicated Comment: . (3) Cannabis dependence Current Visit: Yes (4) Opioid dependence on agonist therapy Current Visit: Yes Comment: . (5) Nicotine dependence Current Visit: Yes (6) Asthma Current Visit: No Qualifiers: Asthma severity: mild intermittent Asthma complication type: uncomplicated Comment: . (7) Hypertension Current Visit: No Qualifiers: Hypertension type: essential hypertension Qualified Code(s): I10 - Essential (primary) hypertension Comment: . (8) GERD (gastroesophageal reflux disease) Current Visit: Yes Initial treatment plan: Patient is discharged today and referred to [facility] for outpatient treatment
[2018-07-27] MEDS: HYDROCHLOROTHIAZIDE 25 MG TABLET (FP) PO SCH (09:48)
[2018-07-27] MEDS: PRENATAL VITAMINS W/ FOLIC ACID TABLET (FP) PO SCH (09:49)
[2018-07-27] MEDS: NICOTINE 14 MG/24 HOURS TOPICAL PATCH TD SCH (09:49)
[2018-07-27] MEDS: amLODIPine BESYLATE 5 MG TABLET (FP) PO SCH (09:49)
== END 2018-07-27 10:30 | disposition home or self-care (01) | DRG 772 ==
LOC: YASAS 15:12 → Y5N 15:13
PROVIDERS: ADMIT Psychiatry & Neurology Psychiatry; ATTEND Psychiatry & Neurology Psychiatry
PROC: HZ42ZZZ Group Counseling for Substance Abuse Treatment, Cognitive-Behavioral (ICD-10-PCS; principal; 2018-07-15)
PROC: 3E0234Z Introduction of Serum, Toxoid and Vaccine into Muscle, Percutaneous Approach (ICD-10-PCS; 2018-07-15)
DX: F10.20 Alcohol dependence, uncomplicated (principal); F11.20 Opioid dependence, uncomplicated; F14.20 Cocaine dependence, uncomplicated; F12.20 Cannabis dependence, uncomplicated; F17.210 Nicotine dependence, cigarettes, uncomplicated; F31.81 Bipolar II disorder; I10 Essential (primary) hypertension; J45.20 Mild intermittent asthma, uncomplicated; Z23 Encounter for immunization; N50.9 Disorder of male genital organs, unspecified; N50.819 Testicular pain, unspecified
CPT/HCPCS: 36415; 80053; 90688; G0008

== ENCOUNTER 2018-07-18 12:28 | Emergency (ER) | payer OTHER ==
[2018-07-18 12:39] VITALS: BMI 22.1
--- NOTE | 2018-07-18 13:01 | PDOC ---
History of Present Illness - General Chief Complaint: Urinary Problem Stated Complaint: TESTICULAR PAIN Time Seen by Provider: 07/18/18 12:34 History Source: Patient Exam Limitations: No Limitations - History of Present Illness Travel History: No Initial Comments: 07/18/18 13:01 Patient is a 57 year old male with a PMHx of HTN, Asthma, GERD, Bipolar disorder , Schizophrenia, EtOH and drug abuse currently in detox/rehab who presents to the ED complaining of left testicular pain and tenderness associated with urinary frequency and dysuria that started three days ago. Patient describes the testicular pain as a constant, nonradiating burning sensation that worsens when you touch it with no alleviating factors. He reports taking Tylenol and Motrin for the pain but with no relief of symptoms. In the last 24 hours patient reports the pain progressively worsened to the point he was unable to walk, which prompted this hospital visit. Patient Otherwise denies any penile discharge, drainage or bleeding. Denies any trauma or injury to the area. Denies any heavy lifting. Reports he is sexually active with one woman for the last several years. Otherwise, patient denies any fevers, chills, nausea, vomiting, chest pain, palpitations, shortness of breath, diarrhea, constipation, headaches, loss of consciousness, hematuria, melena, hematochezia, hematemesis. Of note, patient is currently admitted to [facility]. Completed Detox from 07/11/18-07/15/18 with Librium and Methadone and is now in Rehab since and will be there for a month. PMHx: HTN ASTHMA GERD BIPOLAR DISORDER SCHIZOPHRENIA EtOH abuse DRUG ABUSE PSHx: Tonsillitis (as a child) Left shoulder orthopedic surgery Social Hx: 3PPD smoker since the age 14. (Quit 07/11/18) Marijuana, heroine, and cocaine abuse since Age 14 (Quit 07/11/18) Reports Alcohol abuse with 30 (24 ounce) Beers daily (Quit 07/11/18) Family Hx: Father- DM Mother- Denies Allergies: NKDA Past History - Past Medical History Allergies/Adverse Reactions: Allergies Allergy/AdvReac Type Severity Reaction Status Date / Time Fish Containing Products Allergy Severe Hives Verified 07/18/18 12:33 shellfish derived Allergy Severe Hives Verified 07/18/18 12:33 No Known Drug Allergies Allergy Verified 07/18/18 12:33 SEAFOOD Allergy Severe Hives Uncoded 07/18/18 12:33 Home Medications: Ambulatory Orders traZODone HCL [Desyrel -] 200 mg PO HS #30 tablet 12/11/15 Gabapentin [Neurontin -] 300 mg PO DAILY 07/11/18 Albuterol Sulfate Inhaler - [Ventolin HFA Inhaler -] 2 puff IH Q4H PRN #1 cartridge 07/15/18 Amlodipine Besylate [Norvasc -] 5 mg PO BID #28 tablet 07/15/18 Hydrochlorothiazide [Hctz -] 25 mg PO DAILY #14 tablet 07/15/18 Hydroxyzine HCl 50 mg PO Q4H 07/18/18 Ibuprofen 400 mg PO Q6H 07/18/18 Melatonin 5 mg PO HS 07/18/18 Naproxen [Naprosyn -] 500 mg PO BID PRN #20 tablet 07/18/18 Quetiapine Fumarate [Seroquel] 150 mg PO HS 07/18/18 Anemia: No Asthma: Yes Cancer: No Cardiac Disorders: No CVA: No COPD: No CHF: No Dementia: No Diabetes: No GI Disorders: No Disorders: No HTN: Yes (non compliants with meds.) Hypercholesterolemia: No Kidney Stones: No Liver Disease: No Seizures: Yes Thyroid Disease: No - Surgical History Abdominal Surgery: No Appendectomy: No Cardiac Surgery: No Cholecystectomy: No Lung Surgery: No Neurologic Surgery: No Orthopedic Surgery: Yes (SX LEFT ARM A CHILD) - Reproductive History Testicular Surgery: No - Suicide/Smoking/Psychosocial Hx Smoking History: Current every day smoker Have you smoked in the past 12 months: Yes Number of Cigarettes Smoked Daily: 40 Information on smoking cessation initiated: Yes 'Breaking Loose' booklet given: 07/11/18 Hx Alcohol Use: Yes Drug/Substance Use Hx: Yes Substance Use Type: Alcohol, Cocaine, Heroin, Marijuana Hx Substance Use Treatment: Yes Abd/GI Specific PMHX - Complaint Specific PMHX Hepatitis: No Pancreatitis: No Review of Systems - Review of Systems Able to Perform ROS?: Yes Is the patient limited Icelandic proficient: No Constitutional: No: Chills, Diaphoresis, Fever, Loss of Appetite, Night Sweats, Weakness HEENTM: No: Nose Congestion, Tinnitus, Nose Bleeding Respiratory: No: Cough, Orthopnea, Shortness of Breath, SOB with Exertion, SOB at Rest, Stridor, Wheezing, Productive cough, Hemoptysis Cardiac (ROS): No: Chest Pain, Edema, Lightheadedness, Palpitations, Syncope ABD/GI: No: Abdominal Distended, Abd. Pain w/ defecation, Constipated, Diarrhea , Difficulty Swallowing, Nausea, Poor Appetite, Poor Fluid Intake, Rectal Bleeding, Vomiting, Indigestion, Abdominal cramping : Yes: Burning, Dysuria, Frequency, Testicular Swelling, Testicular Pain. No : Discharge, Flank Pain, Hematuria, Incontinence, Testicular Mass Integumentary: No: Bruising, Erythema, Flushing Neurological: Yes: Tremors. No: Headache, Numbness, Seizure, Tingling Psychiatric: No: Anxiety, Depression, Frequent Crying Endocrine: No: Flushing *Physical Exam - Vital Signs Last Vital Signs Temp Pulse Resp BP Pulse Ox 98.2 F 87 20 129/82 100 07/18/18 12:33 07/18/18 12:33 07/18/18 12:33 07/18/18 12:33 07/18/18 12:33 - Physical Exam General Appearance: Yes: Other (Awake, alert, oriented x3 and in no acute distress ) HEENT: positive: EOMI, KHUSHBOO, Normal ENT Inspection, Pharynx Normal. negative: Pharyngeal Erythema, Tonsillar Exudate, Tonsillar Erythema Neck: positive: Supple. negative: Lymphadenopathy (R), Lymphadenopathy (L) Respiratory/Chest: positive: Lungs Clear, Normal Breath Sounds. negative: Decreased Breath Sounds, Crackles, Rales, Rhonchi, Stridor, Wheezing Cardiovascular: positive: Regular Rhythm, Regular Rate, S1, S2. negative: Edema , JVD, Murmur Vascular Pulses: Femoral (R): 2+, Femoral (L): 2+, Carotid (R): 2+, Carotid (L) : 2+ Gastrointestinal/Abdominal: positive: Other (Soft, non distended, tenderness upon palpation of LLQ, normoactive bowel sounds, no rebound or guarding.) Male Genitalia: positive: testicular tenderness (Left anterior testical ), epididymus tender ( ). negative: discharge, testicular mass, hernia, hematuria Musculoskeletal: positive: Normal Inspection, CVA Tenderness. negative: CVA Tenderness (R), CVA Tenderness (L), Decreased Range of Motion Extremity: positive: Normal Capillary Refill, Normal Inspection, Normal Range of Motion. negative: Delayed Capillary Refill, Pedal Edema, Swelling, Calf Tenderness, Erythema Integumentary: positive: Normal Color, Dry, Warm. negative: Erythema, Jaundice , Swelling Neurologic: positive: staff appraiser II-XII NML intact, Fully Oriented, Alert, Normal Mood/ Affect, Normal Response, Motor Strength 5/5 Moderate Sedation - Procedure Monitoring Vital Signs: Procedure Monitoring Vital Signs Temperature 98.2 F 07/18/18 12:33 Pulse Rate 87 07/18/18 12:33 Respiratory Rate 20 07/18/18 12:33 Blood Pressure 129/82 07/18/18 12:33 O2 Sat by Pulse Oximetry (%) 100 07/18/18 12:33 ED Treatment Course - LABORATORY CBC & Chemistry Diagram: 07/18/18 13:34 07/18/18 13:34 Medical Decision Making - Medical Decision Making 07/18/18 13:43 Patient is a 57 year old male who presented from [facility] detox/rehab for worsening left testicular pain and tenderness associated with dysuria, frequency and LLQ abdominal pain. Differential Diagnosis include but not limited to testicular torsion, epididymitis, orchitis, Urinary tract infection, Diverticulitis, malignancy. -Labwork: CBC, CMP, Lactic ordered -U/A and culture ordered -U/S of scrotum ordered 07/18/18 14:05 -U/A negative -U/S and labs pending 07/18/18 15:30 -Labs unremarkable -Scrotum U/S revealed possible testicular mass -Spoke to Urologist, Dr. Cerda. States if patient has no torsion, he may follow up at his office as outpatient on Wednesday. Recommended to order tumor markers, AFP, Beta HCG Quant, and LDH. -CT of abdomen ordered due to LLQ pain and to rule out Diverticulitis 07/18/18 17:43 -CT abdomen revealed CBD dilation with gallbladder thickening and pancreatic duct dilation -Patient offers no complaints -Will make a call to Dr. Don 07/18/18 17:59 -Spoke to GI, Dr. Don, and states this is likely a narcotic ductal dilation likely due to history of alcohol and drug abuse. LFT's not impressive and patient offers no abdominal pain. -Will refer patient to outpatient GI for MRCP and further evaluation -Patient to be discharged back to [facility] *DC/Admit/Observation/Transfer Diagnosis at time of Disposition: Left testicular pain - Discharge Dispostion Disposition: TRANSFER ACUTE CARE/OTHER HOSP Condition at time of disposition: Stable Decision to Admit order: No - Prescriptions Prescriptions: Naproxen [Naprosyn -] 500 mg PO BID PRN #20 tablet PRN Reason: Pain Level 6-10 - Referrals Referrals: Sandy Camacho DO [Staff Physician] - Colby Lo MD [Staff Physician] - - Patient Instructions Additional Instructions: -You were seen here for left testicular pain and found to have a left testicular mass. This is concerning for malignancy/cancer and you will need to follow up with a Urologist. We spoke to Urology and they recommended you to come to their office this Wednesday (07/20/18) for further evaluation. They will be expecting you.The information for the Urology will be in the Package. The name of the Urologist is Dr. Cerda. -You were also found to have a possible infection of the gallbladder area and you will need to be followed up by a stomach Doctor within 1 week. You will have a referral to a stomach doctor in your discharge packet. The name of the Doctor is Dr. Camacho -If you start to experience worsening abdominal pain, fevers, chills, severe vomiting, new, worsening, or concerning symptoms, please return to the emergency department immediately. -Please take Naproxen 500mg twice a day for pain up to 10 days as needed - Post Discharge Activity
[2018-07-18 13:57] LABS: URINE APPEARANCE CLEAR; URINE BILIRUBIN NEGATIVE (<2.0 mg/dL); URINE COLOR LTYELLOW; URINE GLUCOSE (UA) NEGATIVE (NEGATIVE); URINE KETONE NEGATIVE (NEGATIVE); URINE LEUK ESTERASE NEGATIVE (NEGATIVE); URINE NITRITE NEGATIVE (NEGATIVE); URINE PROTEIN NEGATIVE (NEGATIVE); URINE UROBILINOGEN NEGATIVE mg/dL (0.2-1.0)
[2018-07-18 14:09] LABS: BASO % 1.5 % (0-2.0); EOS % 3.1 % (0-4.5); HEMATOCRIT 40.6 % (35.4-49); HEMOGLOBIN 14.2 GM/dL (11.7-16.9); LYMPH % 14.5 % (8-40); MCH 32.8 pg (25.7-33.7); MCHC 34.9 g/dl (32.0-35.9); MEAN CELL VOLUME 93.9 fl (80-96); MEAN PLT VOLUME 9.4 fl (7.5-11.1); MONO % 13.3 % (3.8-10.2); NEUT % 67.6 % (42.8-82.8); PLATELET COUNT 240 K/MM3 (134-434); RBC 4.32 M/mm3 (4.00-5.60); WHITE BLOOD COUNT 7.5 K/mm3 (4.0-10.0)
--- NOTE | 2018-07-18 14:13 | PDOC ---
Attending Attestation - Resident Resident Name: BrianisabelleMarilynShelby - ED Attending Attestation I have performed the following: I have examined & evaluated the patient, The case was reviewed & discussed with the resident, I agree w/resident's findings & plan, Exceptions are as noted - HPI HPI: 07/18/18 14:12 The patient is a 57 year old male with a significant past medical history of HTN , schizophrenia, bipolar disorder, alcohol dependency who presents to the ED with progressively worsening left testicular pain. The patient was recently in detox for alcohol abuse from 07/11-07/15 and was admitted for rehab on the . Patient comes into the ED today complaining of left sided testicular pain with associated urinary frequency and dysuria for 3 days. Patient states he could not walk today secondary to testicular pain. Pain is constant. No hx similar sxs. No penile DC, or hx STIs. He states he took tylenol and motrin earlier today with no relief of present symptoms. No trauma. Denies fever or chills. Denies hematuria. Denies abdominal pain, nausea, vomiting or diarrhea. Denies chest pain or shortness of breath. Denies headache or lightheadedness. Denies any other symptoms. - Physicial Exam PE: 07/18/18 14:14 GENERAL: Awake, alert, and fully oriented, in no acute distress EYES: PERRLA, EOMI, sclera anicteric, conjunctiva clear ENT: Nares patent, oropharynx clear without exudates. Moist mucosa LUNGS: Breath sounds equal, clear to auscultation bilaterally. No wheezes, and no crackles HEART: Regular rate and rhythm, normal S1 and S2, no murmurs, rubs or gallops ABDOMEN: Soft, +LLQ ttp, normoactive bowel sounds. No guarding, no rebound. No masses : No CVAT. +L anterior scrotal ttp, no erythema, induration. No masses. Normal lie. Normal cremasteric reflex. No ttp to R scrotum. Penis wnl. EXTREMITIES: Normal range of motion, no edema. No cords, erythema, or tenderness NEUROLOGICAL: Normal speech, cranial nerves intact, equal strength and sensation b/l SKIN: Warm, Dry, normal turgor, no rashes or lesions noted. - Medical Decision Making 07/18/18 14:15 57yo M presents to the ED with 3 days of scrotal pain and urinary sxs. Vitals wnl. Exam with LLQ ttp and scrotal ttp. DDx includes but not limited to orchitis vs epididymorchitis vs UTI vs torsion vs renal colic vs diverticulitis. Plan: -labs -UA -US -pain control -reassess 07/18/18 16:58 Labs wnl UA wnl US with possible L scrotal mass +persistent LLQ pain, will obtain CTAP to r/o diverticulitis or other acute abd path. Can also help further evaluate for possible scrotal mass Case discussed with Dr. Myles, recommends sending tumor markers and if remaining w/u neg, to have pt f/u with him in the office on Wednesday. CTAP with IV contrast pending CXR pending (to look for mets if testicular mass) Case signed out to oncoming ED attending for f/u on diagnostics/re-evaluation/ dispo
[2018-07-18 14:44] LABS: ALBUMIN 3.8 g/dl (3.4-5.0); ALK PHOS 169 U/L (45-117); ANION GAP 5 MMOL/L (8-16); BILIRUBIN,TOTAL 0.2 mg/dL (0.2-1); BLOOD UREA NITROGEN 20 mg/dL (7-18); CALCIUM 9.4 mg/dL (8.5-10.1); CHLORIDE 104 mmol/L (98-107); CO2 31 mmol/L (21-32); CREATININE 0.6 mg/dL (0.55-1.3); GLUCOSE,RANDOM 106 mg/dL (74-106); POTASSIUM 4.2 mmol/L (3.5-5.1); SGOT/AST 21 U/L (15-37); SGPT/ALT 30 U/L (13-61); SODIUM 139 mmol/L (136-145); TOT PROT 7.2 g/dl (6.4-8.2)
[2018-07-18] MEDS ORDERED: ACETAMINOPHEN 1000 MG/100 ML VIAL (NON FORMULARY) IVPB ONE (14:59)
[2018-07-18] MEDS ORDERED: ACETAMINOPHEN INJECTION 100 ML IVPB ONE (15:04)
[2018-07-18 16:18] LABS: LDH 125 U/L (87-246)
[2018-07-18 18:30] VITALS: BP 123/80; PULSE 98; TEMP 98.4
== END 2018-07-18 19:32 | disposition short-term general hospital (02) ==
LOC: JER 12:28
PROC: 3E033NZ Introduction of Analgesics, Hypnotics, Sedatives into Peripheral Vein, Percutaneous Approach (ICD-10-PCS; principal; 2018-07-18)
DX: N50.812 Left testicular pain (principal); I10 Essential (primary) hypertension; J45.909 Unspecified asthma, uncomplicated; K21.9 Gastro-esophageal reflux disease without esophagitis; F31.9 Bipolar disorder, unspecified; F20.9 Schizophrenia, unspecified; F10.10 Alcohol abuse, uncomplicated; F19.10 Other psychoactive substance abuse, uncomplicated
CPT/HCPCS: 36415; 71045-TC-FY; 74177-TC; 76870-TC; 80053; 81003; 82105; 83605; 83615; 84702; 85025; 87086; 99283-25; J0131

== ENCOUNTER 2019-03-04 02:21 | Emergency (ER) | payer OTHER | END 2019-03-04 12:54 | disposition home or self-care (01) | LOC: JER 02:21 ==

== ENCOUNTER 2021-07-09 19:58 | Inpatient (IN) | payer OTHER ==
[2021-07-09 20:35] VITALS: BMI 26.9
[2021-07-09] MEDS ORDERED: guaiFENesin 200 MG/10 ML 10 ML UNIT-DOSE CUPS PO PRN (23:45)
[2021-07-09] MEDS ORDERED: IBUPROFEN 400 MG TABLET (FP) PO PRN (23:45)
[2021-07-09] MEDS ORDERED: NALOXONE (NARCAN) HCL 4 MG/0.1 ML SPRAY NS PRN (23:45)
[2021-07-09] MEDS ORDERED: ACETAMINOPHEN 325 MG TABLET (FP) PO PRN (23:45)
[2021-07-09] MEDS ORDERED: MAGNESIUM HYDROX 2400MG/30ML ORAL SUSPENSION 30 ML CUP PO PRN (23:45)
[2021-07-09] MEDS ORDERED: MAGNESIUM CITRATE 300 ML BOTTLE PO PRN (23:45)
[2021-07-09] MEDS ORDERED: P-EPHED 60MG/TRIPROLIDI 2.5MG TABLET PO PRN (23:45)
[2021-07-09] MEDS ORDERED: LORazepam 1 MG TABLET PO PRN (23:45)
[2021-07-09] MEDS ORDERED: BISMUTH SUBSALICYLATE 524 MG/30 ML PO PRN (23:45)
[2021-07-09] MEDS ORDERED: MAG HYDROX/AL HYDROX/SIMETH 30 ML UNIT-DOSE CUP PO PRN (23:45)
[2021-07-09] MEDS ORDERED: DICYCLOMINE HCL 10 MG CAPSULE PO PRN (23:45)
[2021-07-09] MEDS ORDERED: MENTHOL/PHENOL 1 EACH UD MM PRN (23:45)
[2021-07-09] MEDS ORDERED: NALOXONE HCL 0.4 MG/ML VIAL IM PRN (23:45)
[2021-07-09] MEDS ORDERED: TRIMETHOBENZAMIDE HCL 200MG/2ML INJ IM ONE (23:49)
[2021-07-10] MEDS: METHOCARBAMOL 500 MG TABLET PO PRN ×2 (01:40→22:38)
[2021-07-10] MEDS: LORazepam 1 MG TABLET PO SCH ×5 (01:40→22:36)
[2021-07-10] MEDS: ACETAMINOPHEN 325 MG TABLET (FP) PO PRN ×2 (01:42→22:39)
[2021-07-10] MEDS ORDERED: methaDONE HCL 10 MG TABLET PO SCH (09:30)
[2021-07-10] MEDS ORDERED: methaDONE HCL 10 MG TABLET ONE (10:02)
[2021-07-10] MEDS ORDERED: methaDONE HCL 40 MG DISPERSABLE TABLET ONE (10:02)
[2021-07-10] MEDS: NICOTINE 21 MG/24 HOURS TOPICAL PATCH TD SCH (10:29)
[2021-07-10] MEDS: PRENATAL VITAMINS W/ FOLIC ACID TABLET (FP) PO SCH (10:29)
[2021-07-10] MEDS: NICOTINE 10 MG CARTRIDGE (INHALER) IH PRN (10:34)
[2021-07-10] MEDS ORDERED: FLU VACC QS2021-22(6MOS UP)/PF 60 MCG/0.5 ML SYRINGE IM ONE (12:00)
[2021-07-10 12:33] LABS: HEMATOCRIT 38.5 % (35.4-49); HEMOGLOBIN 12.9 GM/dL (11.7-16.9); MCH 30.3 pg (25.7-33.7); MCHC 33.6 g/dl (32.0-35.9); MEAN CELL VOLUME 90.1 fl (80-96); MEAN PLT VOLUME 8.1 fl (7.5-11.1); PLATELET COUNT 207 10^3/uL (134-434); RBC 4.27 M/mm3 (4.00-5.60); RDW 15.6 % (11.9-15.9); WHITE BLOOD COUNT 5.6 K/mm3 (4.0-10.0)
[2021-07-10 12:44] LABS: ALBUMIN 3.6 g/dl (3.4-5.0)
[2021-07-10 12:45] LABS: BLOOD UREA NITROGEN 11.8 mg/dL (7-18)
[2021-07-10 12:47] LABS: CALCIUM 8.4 mg/dL (8.5-10.1); CREATININE 0.7 mg/dL (0.55-1.3)
[2021-07-10 12:48] LABS: TOT PROT 7.1 g/dl (6.4-8.2)
[2021-07-10 12:49] LABS: BILIRUBIN,TOTAL 0.6 mg/dL (0.2-1)
[2021-07-10 13:32] LABS: HIV INTERPRETATION NEGATIVE (NEGATIVE)
[2021-07-10] MEDS: MELATONIN 5 MG TABLETS PO SCH (22:36)
[2021-07-10] MEDS: THIAMINE HCL 100 MG TABLET (FP) PO SCH (22:36)
[2021-07-11] MEDS ORDERED: methaDONE HCL 10 MG TABLET ONE (04:28)
[2021-07-11] MEDS ORDERED: methaDONE HCL 40 MG DISPERSABLE TABLET ONE (04:28)
[2021-07-11] MEDS: LORazepam 1 MG TABLET PO SCH ×4 (05:55→22:34)
[2021-07-11] MEDS: NICOTINE 10 MG CARTRIDGE (INHALER) IH PRN (10:13)
[2021-07-11] MEDS: NICOTINE 21 MG/24 HOURS TOPICAL PATCH TD SCH (10:13)
[2021-07-11] MEDS: PRENATAL VITAMINS W/ FOLIC ACID TABLET (FP) PO SCH (10:14)
[2021-07-11] MEDS ORDERED: ALBUTEROL SO4 HFA INHALER IH PRN (18:07)
[2021-07-11] MEDS: ACETAMINOPHEN 325 MG TABLET (FP) PO PRN (18:09)
[2021-07-11] MEDS: QUEtiapine FUMARATE 300 MG TABLET PO SCH (22:34)
[2021-07-11] MEDS: THIAMINE HCL 100 MG TABLET (FP) PO SCH (22:34)
[2021-07-11] MEDS: PRAZOSIN HCL 1 MG CAPSULE PO SCH (22:34)
[2021-07-11] MEDS: MELATONIN 5 MG TABLETS PO SCH (22:38)
[2021-07-12] MEDS ORDERED: LORazepam 0.5 MG TABLET PO PRN
[2021-07-12] MEDS ORDERED: methaDONE HCL 40 MG DISPERSABLE TABLET ONE (04:51)
[2021-07-12] MEDS ORDERED: methaDONE HCL 10 MG TABLET ONE (04:51)
[2021-07-12] MEDS: LORazepam 0.5 MG TABLET PO SCH ×4 (06:19→22:33)
[2021-07-12] MEDS: NICOTINE 21 MG/24 HOURS TOPICAL PATCH TD SCH (10:13)
[2021-07-12] MEDS: PRENATAL VITAMINS W/ FOLIC ACID TABLET (FP) PO SCH (10:13)
[2021-07-12] MEDS: ESCITALOPRAM OXALATE 10 MG TABLET PO SCH (10:15)
[2021-07-12] MEDS: ACETAMINOPHEN 325 MG TABLET (FP) PO PRN (10:15)
[2021-07-12] MEDS: NICOTINE 10 MG CARTRIDGE (INHALER) IH PRN (10:20)
[2021-07-12] MEDS: THIAMINE HCL 100 MG TABLET (FP) PO SCH (22:32)
[2021-07-12] MEDS: PRAZOSIN HCL 1 MG CAPSULE PO SCH (22:32)
[2021-07-12] MEDS: MELATONIN 5 MG TABLETS PO SCH (22:32)
[2021-07-12] MEDS: QUEtiapine FUMARATE 300 MG TABLET PO SCH (22:32)
[2021-07-13] MEDS ORDERED: methaDONE HCL 10 MG TABLET ONE (04:47)
[2021-07-13] MEDS ORDERED: methaDONE HCL 40 MG DISPERSABLE TABLET ONE (04:48)
[2021-07-13] MEDS ORDERED: LORazepam 0.5 MG TABLET PO ONE (05:00)
[2021-07-13 09:08] VITALS: BP 142/87; PULSE 73; TEMP 97.1
[2021-07-13] MEDS: ESCITALOPRAM OXALATE 10 MG TABLET PO SCH (09:30)
[2021-07-13] MEDS: NICOTINE 21 MG/24 HOURS TOPICAL PATCH TD SCH (09:30)
[2021-07-13] MEDS: PRENATAL VITAMINS W/ FOLIC ACID TABLET (FP) PO SCH (09:31)
== END 2021-07-13 09:30 | disposition home or self-care (01) | DRG 773 ==
LOC: YASAS 19:58 → Y3N 23:48
PROVIDERS: ADMIT Allergy & Immunology; ATTEND Allergy & Immunology
PROC: HZ2ZZZZ Detoxification Services for Substance Abuse Treatment (ICD-10-PCS; principal; 2021-07-09)
DX: F10.230 Alcohol dependence with withdrawal, uncomplicated (principal); F11.20 Opioid dependence, uncomplicated; F14.20 Cocaine dependence, uncomplicated; F12.20 Cannabis dependence, uncomplicated; F17.210 Nicotine dependence, cigarettes, uncomplicated; F43.10 Post-traumatic stress disorder, unspecified; F31.9 Bipolar disorder, unspecified; F19.24 Other psychoactive substance dependence with psychoactive substance-induced mood disorder; F19.282 Other psychoactive substance dependence with psychoactive substance-induced sleep disorder; I10 Essential (primary) hypertension; E11.9 Type 2 diabetes mellitus without complications; J45.20 Mild intermittent asthma, uncomplicated; K21.9 Gastro-esophageal reflux disease without esophagitis; R74.01 Elevation of levels of liver transaminase levels; R00.0 Tachycardia, unspecified; M54.42 Lumbago with sciatica, left side; G89.29 Other chronic pain; Z91.013 Allergy to seafood; Z79.84 Long term (current) use of oral hypoglycemic drugs; Z56.0 Unemployment, unspecified; Z59.00 Homelessness unspecified
CPT/HCPCS: 36415; 80053; 82962; 85027; 86780; 86803; 87389; 90686; C9803; G0008; U0003; U0005